=== PATIENT | male | born 1980 | race Caucasian/White ===

== ENCOUNTER 2017-03-17 10:53 | Emergency (ER) | payer MEDICAID ==
--- NOTE | 2017-03-17 11:06 | Emergency Department Record ---
History of Present Illness - General Chief complaint: Extremity Problem Stated complaint: RIGHT ARM PAIN Time Seen by Provider: 03/17/17 11:01 Source: Patient - History of Present Illness Initial comments: The patient has ulnar nerve pain down his right arm and takes ultram for it. He cannot get surgery until the holidays, so he is asking for a refill of his ultram until he can recheck with Kanwal Caballero next Sunday. He is supposed to take 2 per day, but has needed more and now ran out. He is feeling achy all over and his arm is paining him. Complaint: Extremity pain - Related Data Previous Rx's Medication Instructions Recorded Tramadol HCl [Ultram] 50 mg PO Q8H #21 tab 03/17/17 Allergies Allergy/AdvReac Type Severity Reaction Status Date / Time codeine phosphate Allergy Mild vomiting Verified 03/17/17 10:59 [From Tylenol-Codeine #3] Review of Systems Reviewed: No additional complaints except as noted below Constitutional: Reports: As per HPI. Denies: Chills, Fever, Malaise, Night sweats, Weakness, Weight change Eyes: Reports: As per HPI. Denies: Eye discharge, Eye pain, Photophobia, Vision change ENT: Reports: As per HPI. Denies: Congestion, Dental pain, Ear pain, Epistaxis , Hearing loss, Throat pain Respiratory: Reports: As per HPI. Denies: Cough, Dyspnea, Hemoptysis, Stridor, Wheezes Cardiovascular: Reports: As per HPI. Denies: Arrhythmia, Chest pain, Dyspnea on exertion, Edema, Murmurs, Orthopnea, Palpitations, Paroxysmal nocturnal dyspnea, Rheumatic Fever, Syncope Endocrine: Reports: As per HPI. Denies: Fatigue, Heat or cold intolerance, Polydipsia, Polyuria Gastrointestinal: Reports: As per HPI. Denies: Abdominal pain, Constipation, Diarrhea, Hematemesis, Hematochezia, Melena, Nausea, Vomiting Genitourinary: Reports: As per HPI. Denies: Dysuria, Frequency, Hematuria, Incontinence, Retention, Testicular pain, Testicular mass, Urgency Musculoskeletal: Reports: As per HPI. Denies: Arthralgia, Back pain, Gout, Joint swelling, Myalgia, Neck pain Skin: Reports: As per HPI. Denies: Bruising, Change in color, Change in hair/ nails, Lesions, Pruritus, Rash Neurological: Reports: As per HPI. Denies: Abnormal gait, Confusion, Headache, Numbness, Paresthesias, Seizure, Tingling, Tremors, Vertigo, Weakness Psychiatric: Reports: As per HPI. Denies: Anxiety, Auditory hallucinations, Depression, Homicidal thoughts, Suicidal thoughts, Visual hallucinations Hematological/Lymphatic: Reports: As per HPI. Denies: Anemia, Blood Clots, Easy bleeding, Easy bruising, Swollen glands Physical Exam - General General Appearance: Alert, Oriented x3, Cooperative, No acute distress - Head Head exam: Normal inspection - Eye Eye exam: Normal appearance, PERRL Pupils: Normal accommodation - ENT ENT exam: Normal exam, Mucous membranes moist, Normal external ear exam, Normal orophraynx, TM's normal bilaterally Ear exam: Normal external inspection. negative: External canal tenderness Nasal Exam: Normal inspection. negative: Discharge, Sinus tenderness Mouth exam: Normal external inspection, Tongue normal Teeth exam: Normal inspection. negative: Dental caries Throat exam: Normal inspection. negative: Tonsillar erythema, Tonsillar exudate - Neck Neck exam: Normal inspection, Full ROM. negative: Tenderness - Respiratory Respiratory exam: Normal lung sounds bilaterally. negative: Respiratory distress - Cardiovascular Cardiovascular Exam: Regular rate, Normal rhythm, Normal heart sounds - GI/Abdominal GI/Abdominal exam: Soft, Normal bowel sounds. negative: Tenderness - Rectal Rectal exam: Deferred - exam: Deferred - Extremities Extremities exam: Normal inspection, Full ROM, Normal capillary refill, Tenderness (Right arm with no bony tenderness; muscle aching over trapezius, lattisimus dorsi, and deltoid region of right side. Normal CMS distally. Holds arm in sling type position) - Back Back exam: Reports: Normal inspection, Full ROM. Denies: Muscle spasm, Rash noted, Tenderness - Neurological Neurological exam: Alert, Normal gait, Oriented X3, Reflexes normal - Psychiatric Psychiatric exam: Normal affect, Normal mood - Skin Skin exam: Dry, Intact, Normal color, Warm Medical Decision Making - Management Options MDM Management: No Additional Work-up Planned (PCP follow up as previously arranged.) Disposition Disposition: Discharge Clinical Impression: Right arm pain Disposition: Home, Self-Care Condition: (1) Good Instructions: Arm Pain (ED), Paresthesia (ED) Additional Instructions: Ultram as directed as needed for pain. Follow up with PCP as previously arranged next week. Surgical referral for nerve entrapment through your PCP. Prescriptions: Tramadol HCl [Ultram] 50 mg PO Q8H #21 tab Quality - Quality Measures Quality Measures: N/A - Blood Pressure Screening Does Patient Have Any of the Following: No Blood Pressure Classification: Hypertensive Reading Systolic Measurement: 152 Diastolic Measurement: 99 Screening for High Blood Pressure: < Pre-Hypertensive BP, F/U Documented > [ G8950] Pre-Hypertensive Follow-up Interventions: Follow-up with rescreen every year.
== END 2017-03-17 11:15 | disposition home or self-care (01) ==
LOC: ER 10:53
DX: M79.601 Pain in right arm (principal)
CPT/HCPCS: 99282

== ENCOUNTER 2017-10-13 10:44 | Emergency (ER) | payer MEDICAID ==
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
== END 2017-10-13 11:36 | disposition home or self-care (01) ==
LOC: ER 10:44
DX: M25.571 Pain in right ankle and joints of right foot (principal); F17.210 Nicotine dependence, cigarettes, uncomplicated
CPT/HCPCS: 99282

== ENCOUNTER 2017-12-20 10:41 | Day surgery (SDC) | payer MEDICAID ==
[2017-12-20] MEDS ORDERED: PROPOFOL 10 MG/ML VIAL IV ONE (10:42)
[2017-12-20] MEDS ORDERED: LIDOCAINE 2% MDV (20MG/ML) 20ML VIAL IV ONE (10:42)
[2017-12-20] MEDS ORDERED: SEVOFLURANE 250 ML INH ONE (10:42)
[2017-12-20] MEDS ORDERED: DEXAMETHASONE 4 MG/ML 1ML VIAL IVP ONE (10:42)
[2017-12-20] MEDS ORDERED: BUPIVACAINE LIPOSOME 266MG/20ML VIAL IV ONE (10:42)
[2017-12-20] MEDS ORDERED: BUPIVACAINE 0.5% (5MG/ML) PF 30ML VIAL IVP ONE (10:42)
[2017-12-20] MEDS ORDERED: MORPHINE SULFATE 5 MG/ML PFS IVP ONE (10:42)
--- NOTE | 2017-12-24 12:30 | Operative Note ---
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 OPERATION: Submuscular ulnar nerve transposition of the right elbow. DESCRIPTION OF PROCEDURE: This 37-year-old male was taken to the operating room and placed in the supine position on the operating room table. General anesthetic was administered. The right upper extremity was elevated. It was prepped with Hibiclens and draped in the usual sterile fashion. It was exsanguinated and the tourniquet inflated to 250 mmHg. A medial incision was made in the right elbow just posterior to the medial epicondyle. Dissection was carried down through the skin and subcutaneous tissue. Curvilinear incision was made. The aponeurosis easily identified and blunt and sharp dissection was carried down to the ulnar nerve. Once the ulnar nerve was identified, then we transected the aponeurosis over the nerve which was extremely thickened and fibrotic. The nerve was identified. The nerve was found to be an extremely small caliber ulnar nerve. The motor branch to the pronator was identified and the nerve was freed to the intramuscular septum. We then felt that this nerve would benefit from transposition. The conjoin tendon was elevated off the medial epicondyle and the nerve transposed medially under the muscle. Then drill holes make in the medial epicondyle and sutures passed through the tendon and through drill holes in the epicondyle, and with the nerve retracted safely laterally, we were able to tie the sutures down. Three sutures were used to secure it in the submuscular position. Once the stitches had been tied, the elbow was flexed and extended making sure that the ulnar nerve was completely free and that there was no evidence of restriction of movement of the nerve in the transposed position. The wound was irrigated with lactated Ringer's solution. Hemostasis obtained with the electrocautery. The subcutaneous tissue closed with 4-0 Vicryl and the skin with a running 4-0 nylon suture. Sterile dressings were applied with a plaster splint immobilization with the wrist in neutral position, forearm in neutral position, the elbow flexed at 90 degrees. GROSS PATHOLOGY: This patient demonstrated marked fibrosis of the aponeurosis over the ulnar nerve in the cubital tunnel. In addition, extremely small caliber nerve was identified. CC: THOMAS Banuelos
== END 2017-12-20 14:35 | disposition home or self-care (01) ==
LOC: SUR 10:41
PROVIDERS: ATTEND Orthopaedic Surgery
DX: G56.21 Lesion of ulnar nerve, right upper limb (principal)
CPT/HCPCS: 64718; 01710; C9290; J2270

== ENCOUNTER 2018-01-14 13:40 | Emergency (ER) | payer SELFPAY ==
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
[2018-01-14] MEDS ORDERED: NAPROXEN 250 MG TABLET PO ONE (14:59)
[2018-01-14] MEDS ORDERED: KETOROLAC 30 MG/ML VIAL IM ONE (15:03)
--- NOTE | 2018-01-16 13:41 | RADIOLOGY REPORT ---
EXAM: ELBOW, RIGHT 3 VIEWS HISTORY: PAIN. TECHNIQUE: Four views of the right elbow were performed. FINDINGS: No evidence of fracture or dislocation. No lytic or blastic lesion. IMPRESSION: NEGATIVE RIGHT ELBOW EXAMINATION. JOB NUMBER: [id number] [facility]
== END 2018-01-14 15:50 | disposition home or self-care (01) ==
LOC: ER 13:40
DX: G89.11 Acute pain due to trauma (principal); M25.571 Pain in right ankle and joints of right foot; M54.2 Cervicalgia; F17.210 Nicotine dependence, cigarettes, uncomplicated; Z98.890 Other specified postprocedural states; V49.9XXA Car occupant (driver) (passenger) injured in unspecified traffic accident, initial encounter
CPT/HCPCS: 99283 ×2; 96372; 73080; J1885